=== PATIENT | female | born 1985 | race Caucasian/White ===

== ENCOUNTER 2017-05-08 11:30 | Emergency (ER) | payer OTHER ==
[2017-05-08 11:44] VITALS: BP 104/69
--- NOTE | 2017-05-08 12:19 | UC ---
Respiratory Complaint HPI - HPI Summary HPI Summary: 31 y/o female presents to the urgent care c/o of asthma flare up and requesting prednisone tabs to improve her SOB. Pt reports her symptoms started while she had a cough last week. However cough resolved and she continues with her SOB and mild wheezing. She has been using her inhaler, but symptoms are not improving. Pt denies fever, Chest pain, nasal congestion, URI,. Pt has not other complains. - History of Current Complaint Chief Complaint: UCAsthma Stated Complaint: MED REFILL Time Seen by Provider: 05/08/17 12:04 Hx Obtained From: Patient Hx Last Menstrual Period: 04/14/17 ?: No Onset/Duration: Gradual Onset, Lasting Days, Still Present Timing: Intermittent Episodes Severity Initially: Mild Severity Currently: Moderate Pain Intensity: 0 Pain Scale Used: 0-10 Numeric Character: Cough: Nonproductive Aggravating Factors: Exertion Alleviating Factors: Bronchodilator Associated Signs And Symptoms: Positive: Dyspnea, Wheezing. Negative: Fever, Chills, URI, Nasal Congestion, Sinus Discomfort - Risk Factors Pulmonary Embolism Risk Factors: Negative Cardiac Risk Factors: Negative Pseudomonas Risk Factors: Negative Tuberculosis Risk Factors: Negative - Allergies/Home Medications Allergies/Adverse Reactions: Allergies Allergy/AdvReac Type Severity Reaction Status Date / Time Ciprofloxacin [From Cipro] Allergy Intermediate Hives Verified 05/08/17 11:44 Moxifloxacin [From Avelox] Allergy Intermediate Hives Verified 05/08/17 11:44 PMH/Surg Hx/FS Hx/Imm Hx Previously Healthy: Yes Endocrine History: Hypothyroidism Respiratory History: Asthma - Surgical History Surgical History: Yes Surgery Procedure, Year, and Place: L breast - Family History Known Family History: Positive: Cardiac Disease, Hypertension - Social History Occupation: Employed Full-time Lives: With Family Alcohol Use: Occasionally Substance Use Type: None Smoking Status (MU): Never Smoked Tobacco - Immunization History Most Recent Influenza Vaccination: none Review of Systems Constitutional: Negative Skin: Negative Eyes: Negative ENT: Negative Respiratory: Shortness Of Breath - w/ midl wheezing Cardiovascular: Negative Gastrointestinal: Negative Genitourinary: Negative Motor: Negative Neurovascular: Negative Musculoskeletal: Negative Neurological: Negative Psychological: Negative All Other Systems Reviewed And Are Negative: Yes Physical Exam Triage Information Reviewed: Yes Appearance: Well-Appearing, No Pain Distress, Well-Nourished Vital Signs: Initial Vital Signs Temp 97.8 F 07/25/17 11:40 Pulse 67 05/08/17 11:40 Resp 18 05/08/17 11:40 BP 104/69 05/08/17 11:40 Pulse Ox 100 05/08/17 11:40 Vital Signs Reviewed: Yes Eye Exam: Normal Eyes: Positive: Conjunctiva Clear - PERRLA, EOMI, fundi grossly normal ENT Exam: Normal ENT: Positive: Normal ENT inspection, Hearing grossly normal, Pharynx normal, TMs normal Dental Exam: Normal Neck exam: Normal Neck: Positive: Supple, Nontender, No Lymphadenopathy Respiratory: Positive: Chest non-tender, Normal breath sounds, No respiratory distress, No accessory muscle use, Wheezing - mild wheezing posterior left upper lung field Cardiovascular Exam: Normal Cardiovascular: Positive: RRR, No Murmur, Pulses Normal, Brisk Capillary Refill Abdomen Description: Positive: Nontender, No Organomegaly, Soft. Negative: CVA Tenderness (R), CVA Tenderness (L) Bowel Sounds: Positive: Present Musculoskeletal Exam: Normal Musculoskeletal: Positive: Strength Intact, ROM Intact, No Edema Neurological Exam: Normal Psychological Exam: Normal Skin Exam: Normal UC Diagnostic Evaluation - Laboratory O2 Sat by Pulse Oximetry: 100 Respiratory Course/Dx - Course Course Of Treatment: 31 y/o female presents to the urgent care c/o of asthma flare up and requesting prednisone tabs to improve her SOB. Pt reports her symptoms started while she had a cough last week. However cough resolved and she continues with her SOB and mild wheezing. She has been using her inhaler, but symptoms are not improving. Pt denies fever, Chest pain, nasal congestion, URI,HX obtained. PE abnormal findings: Respiratory: Positive: Chest non-tender , Normal breath sounds, No respiratory distress, No accessory muscle use, Wheezing - mild wheezing posterior left upper lung field. PT O2sat: 100%. However pt feeling with SOB. Pt Rx prednisone PO x 5 days and advised to continue with the albuterol ipratropium bromide inhaler q4-6hrs. Pt advised to f/u with her PCP for further management on her asthma. Pt understood and agreed and left clinic ambulating. - Differential Dx/Diagnosis Differential Diagnosis/HQI/PQRI: Asthma, Bronchitis, Influenza, Laryngitis, Lower Resp Infection, Other - Asthma exacerbation Provider Diagnoses: 1- Acute asthma exacerbation Discharge - Discharge Plan Condition: Stable Disposition: HOME Prescriptions: predniSONE TAB* [Deltasone TAB*] 20 mg PO DAILY #11 tab Patient Education Materials: Asthma (ED) Referrals: No Primary Care Phys,NOPCP [Primary Care Provider] - [facility] REFERRAL [Outside] - 1 Week Additional Instructions: Please take medications as instructed, and continue taking your albuterol inhaler q4-6hrs prn to alleviate your symptoms. If not improvement or symptoms worsen please return to the urgent care or f/u with a PCP from the [facility] referral center.
== END 2017-05-08 12:22 | disposition home or self-care (01) ==
LOC: UCEAST 11:30
DX: J45.901 Unspecified asthma with (acute) exacerbation (principal); E03.9 Hypothyroidism, unspecified
CPT/HCPCS: 99212; G0463

== ENCOUNTER 2017-05-17 12:13 | Emergency (ER) | payer OTHER ==
[2017-05-17 12:21] VITALS: BP 129/75
--- NOTE | 2017-05-17 12:51 | UC ---
Respiratory Complaint HPI - HPI Summary HPI Summary: About [address], nasal congestion, cough, normal URI sx. All sx improved except for dry cough that persists, especially with talking and exhalation. Had months of post-viral coughing this fall as well and took prednisone, atrovent, and flovent for this. Has lost atrovent inhaler but is taking flovent and was seen here 1 week ago and placed on prednisone. Denies fever, wheezing, or trouble breathing. - History of Current Complaint Chief Complaint: UCRespiratory Stated Complaint: COUGH Time Seen by Provider: 05/17/17 12:27 Hx Obtained From: Patient Hx Last Menstrual Period: 05/08/17 ?: No Onset/Duration: Gradual Onset, Lasting Weeks Timing: Constant Severity Initially: Moderate Severity Currently: Mild Character: Cough: Nonproductive Aggravating Factors: Exertion, Deep Breaths Associated Signs And Symptoms: Negative: Fever, Chills, Pleuritic Chest Pain, URI, Nasal Congestion, Sinus Discomfort - Allergies/Home Medications Allergies/Adverse Reactions: Allergies Allergy/AdvReac Type Severity Reaction Status Date / Time Ciprofloxacin [From Cipro] Allergy Intermediate Hives Verified 05/17/17 12:21 Moxifloxacin [From Avelox] Allergy Intermediate Hives Verified 05/17/17 12:21 PMH/Surg Hx/FS Hx/Imm Hx Respiratory History: Asthma - RAD; had whooping cough in college - Surgical History Surgical History: Yes Surgery Procedure, Year, and Place: L breast - Family History Known Family History: Positive: Cardiac Disease, Hypertension - Social History Occupation: Employed Full-time Alcohol Use: Occasionally Substance Use Type: None Smoking Status (MU): Never Smoked Tobacco - Immunization History Most Recent Influenza Vaccination: none Review of Systems Constitutional: Negative Skin: Negative Eyes: Negative ENT: Negative Respiratory: Cough Cardiovascular: Negative Gastrointestinal: Negative Genitourinary: Negative Motor: Negative Neurovascular: Negative Musculoskeletal: Negative Neurological: Negative Psychological: Negative All Other Systems Reviewed And Are Negative: Yes Physical Exam Triage Information Reviewed: Yes Appearance: Well-Appearing, No Pain Distress, Well-Nourished Vital Signs: Initial Vital Signs Temp 98.3 F 05/17/17 12:16 Pulse 81 05/17/17 12:16 Resp 14 05/17/17 12:16 BP 129/75 05/17/17 12:16 Pulse Ox 100 05/17/17 12:16 Vital Signs Reviewed: Yes Eye Exam: Normal, Other - PERRL Eyes: Positive: Conjunctiva Clear ENT Exam: Normal ENT: Positive: Normal ENT inspection, Hearing grossly normal, Pharynx normal, TMs normal Neck exam: Normal Neck: Positive: Supple, Nontender, No Lymphadenopathy Respiratory Exam: Other - occ dry cough Respiratory: Positive: Chest non-tender, Lungs clear, Normal breath sounds, No respiratory distress, No accessory muscle use Cardiovascular Exam: Normal Cardiovascular: Positive: RRR, No Murmur Musculoskeletal Exam: Normal Neurological Exam: Normal Neurological: Positive: Alert Psychological Exam: Normal Skin Exam: Normal Diagnostic Evaluation - Laboratory O2 Sat by Pulse Oximetry: 100 Respiratory Course/Dx - Differential Dx/Diagnosis Differential Diagnosis/HQI/PQRI: Asthma, Bronchitis, Exacerbation Of COPD Provider Diagnoses: post-viral cough. reactive airway disease exacerbation Discharge - Discharge Plan Condition: Stable Disposition: HOME Prescriptions: Ipratropium HFA INHALER(NF) [Atrovent Hfa Inhaler(NF)] 2 puff INH QID #1 mdi predniSONE TAB* [Deltasone TAB*] 10 mg PO DAILY #45 tab Patient Education Materials: Acute Cough (ED) Referrals: No Primary Care Phys,NOPCP [Primary Care Provider] - Additional Instructions: POST-VIRAL COUGH: A very common cause of persistent cough is called "post-viral cough syndrome." During a viral infection, the virus can irritate your bronchial tubes. Then even after the infection is over, you may continue to cough. Your cough is left over from your recent viral infection. You do not show evidence of a continuing viral infection,bronchitis or pneumonia. You do not need antibiotics at this time. It may be helpful to use inhaled cool mist, throat lozenges, cough medication or bronchial inhalers to open up your bronchial tubes. We expect you will be improved in a week or two. Please get back to us if you have fever, chest pain, colored sputum, blood in the sputum, wheezing or shortness of breath. In August of 2016 I prescribed you prednisone x 5 days and atrovent. In September you were prescribed the flovent and a longer course of prednisone. As we discussed, I recommend you try the atrovent only to see if it helps; if not, you can do the long steroid taper. You may benefit from seeing a substance abuse clinician since this keeps happening to you.
== END 2017-05-17 12:48 | disposition home or self-care (01) ==
LOC: UCEAST 12:13
DX: J45.901 Unspecified asthma with (acute) exacerbation (principal); R05 Cough
CPT/HCPCS: 99212; G0463

== ENCOUNTER 2019-01-08 18:46 | Emergency (ER) | payer OTHER ==
[2019-01-08 19:11] VITALS: BP 123/80
--- NOTE | 2019-01-08 20:03 | UC ---
HPI Wound/Suture Re-check - HPI Summary HPI Summary: Ms. Palafox had two stitches placed after a biopsy 2 weeks ago and came in without C/O for suture removal. - History Of Current Complaint Chief Complaint: UCGeneralIllness Stated Complaint: SUTURE REMOVAL Time Seen by Provider: 01/08/19 19:46 Hx Obtained From: Patient Hx Last Menstrual Period: 05/08/17 Severity: Mild Pain Intensity: 0 - Allergies/Home Medications Allergies/Adverse Reactions: Allergies Allergy/AdvReac Type Severity Reaction Status Date / Time ciprofloxacin Allergy Hives Verified 01/08/19 19:13 moxifloxacin [From Avelox] Allergy Hives Verified 01/08/19 19:13 PMH/Surg Hx/FS Hx/Imm Hx Previously Healthy: Yes - Surgical History Surgical History: Yes Surgery Procedure, Year, and Place: L breast - Family History Known Family History: Positive: Cardiac Disease, Hypertension - Social History Alcohol Use: Occasionally Substance Use Type: None Smoking Status (MU): Never Smoked Tobacco - Immunization History Most Recent Influenza Vaccination: none Review of Systems All Other Systems Reviewed And Are Negative: Yes Physical Exam - Summary Physical Exam Summary: Nontoxic in appearance with stable vitals. Triage Information Reviewed: Yes Appearance: Well-Appearing Vital Signs: Initial Vital Signs Temp 97.8 F 01/08/19 19:08 Pulse 70 01/08/19 19:08 Resp 18 01/08/19 19:08 BP 123/80 01/08/19 19:08 Pulse Ox 99 01/08/19 19:08 Vital Signs Reviewed: Yes Musculoskeletal Exam: Normal - Wound clean and well healed Neurological Exam: Normal Psychological Exam: Normal Course/Dx - Course Course Of Treatment: The stitches were removed easily using an aseptic technique which she tolerated fine. - Diagnosis Provider Diagnosis: Visit for suture removal Discharge - Sign-Out/Discharge Documenting (check all that apply): Patient Departure All imaging exams completed and their final reports reviewed: No Studies - Discharge Plan Condition: Stable Disposition: HOME Patient Education Materials: Stitches Removal (ED) Referrals: No Primary Care Phys,NOPCP [Primary Care Provider] - - Billing Disposition and Condition Condition: STABLE Disposition: Home
== END 2019-01-08 20:05 | disposition home or self-care (01) ==
LOC: UCEAST 18:46
DX: Z48.02 Encounter for removal of sutures (principal)
CPT/HCPCS: 99211; G0463